=== PATIENT | female | born 1980 | race Two or more races ===

== ENCOUNTER → 2019-12-22 | Outpatient (CLI) | payer MEDICARE ==
[2016-03-21 12:20] VITALS: BP 124/62
[~2019-12-22] MED LIST: CLON-77 PO; LEVO125T5 PO; SERT50TA PO; TRAZ-118 PO
--- NOTE | 2019-12-22 14:26 | RAD ---
EXAM: 1. BILATERAL DIGITAL 3-D DIAGNOSTIC MAMMOGRAPHY. 2. LEFT BREAST ULTRASOUND. HISTORY: Palpable focus left lateral breast. TECHNIQUE: Bilateral full field digital images were obtained in CC and MLO projections with tomosynthesis. Computer-aided detection was applied. Left breast ultrasound was also performed. COMPARISON: None available. This is interpreted as a baseline study. COMPOSITION: C. The breasts are heterogeneously dense, which may obscure small masses. FINDINGS: The patient cannot identify the palpable focus currently. She reports it as a site of tenderness. A skin marker is placed superolaterally at this site. Underlying this, a dense parenchymal focus resolves on an exaggerated CC projection. On tomosynthesis, there is an obscured 4 mm nodule underlying the skin marker. On today's sonography, this may correspond with a 5 x 3 x 2 mm oval hypoechoic nodule consistent with a complicated cyst versus tiny fibroadenoma at the 2:00 position 6 cm from the nipple. This corresponds with the palpable focus, which likely represents a dense parenchymal island. There is no suspicious sonographic finding. Images of the left axilla revealed normal-appearing lymph nodes. Elsewhere, there is no suspicious mammographic finding bilaterally. There are no suspicious masses, microcalcifications or architectural distortion. Skin calcifications are benign. BI-RADS CATEGORY 2: Benign. RECOMMENDATION: 1. Ongoing clinical follow-up of left breast tenderness or palpable foci. This negative result should not delay ongoing management of a clinically suspicious finding. 2. Routine screening mammography in one year. If mammography demonstrates dense breast tissue (heterogenously dense or extremely dense, category C or D), which could hide abnormalities, and if other risk factors for breast cancer have been identified, supplemental screening tests that may be suggested by the ordering physician may be of benefit. Dense breast tissue, in and of itself, is a relatively common condition. Therefore, this information is not provided to cause undue concern, but rather to raise awareness and to promote discussion with the referring physician regarding the presence of other risk factors, in addition to dense breast tissue. The results of this mammography examination is provided to the patient and referring physician. The patient should contact their referring physician if any questions or concerns exist regarding this report. PQRS compliance statement - Patient information was entered into a reminder system with a target due date for the next mammogram. "Our facility is accredited by the [employer] Mammography [employer]." Electronically signed by: Fernie White MD (12/22/2019 2:23 PM) [id number]
== END | disposition home or self-care (01) ==
LOC: MAMMO 13:12
PROVIDERS: ATTEND Family Medicine
DX: R92.1 Mammographic calcification found on diagnostic imaging of breast (principal); N63.21 Unspecified lump in the left breast, upper outer quadrant
CPT/HCPCS: 76641; 77066; G0279; 77062